=== PATIENT | female | born 1960 | race Caucasian/White ===

== ENCOUNTER 2016-09-03 17:52 | Emergency (ER) | payer OTHER ==
[~2016-09-03] VITALS: Ht 157.5 cm; Wt 63.5 kg
[~2016-09-03 17:52] MED LIST: ASPIRIN; ATENOLOL; FOSINOPRIL; HYDR-3498 PO; IBUP-1542 PO; METFORMIN; POLY17PO6 PO; PROTONIX
[2016-09-03 18:22] VITALS: Ht 157.5 cm; Wt 63.5 kg
--- NOTE | 2016-09-03 18:51 | ERD ---
ER Documentation Chief Complaint Date/Time DATE: 09/03/16 TIME: 18:48 Chief Complaint sore throat x 1 day HPI 56-year-old female presents here in emergency department for some inflammation in the back of her tongue. Patient noted this blistery looking inflammation in the back of her tongue. Patient did not eat something new or different. Patient does not have any sore throat or throat discomfort. Patient does not have any fever or chills. ROS All systems reviewed and are negative except as per history of present illness. Medications Home Meds Active Scripts Ibuprofen* (Motrin*) 600 Mg Tab, 600 MG PO Q6H Y for PAIN AND OR ELEVATED TEMP, #30 TAB Prov:AMADOU CORRAL PA-C 04/15/15 Polyethylene Glycol* (Miralax*) 17 Gm Powd.pack, 17 GM PO DAILY, #7 Prov:AMADOU CORRAL-C 04/15/15 Hydrocodone Bit-Acetaminophen* ([place]*) 5-325 Mg Tab, 1 TAB PO Q6 Y for PAIN, # 7 TAB Prov:AMADOU CORRALC 04/15/15 Reported Medications [Fosinopril] No Conflict Check 01/02/15 [Atenolol] No Conflict Check 01/02/15 [Protonix] No Conflict Check 01/02/15 [Metformin] No Conflict Check 01/02/15 [Aspirin] No Conflict Check 01/02/15 Allergies Allergies: Coded Allergies: No Known Allergy (Unverified , 01/02/15) PMhx/Soc History of Surgery: Yes () Anesthesia Reaction: No Hx Neurological Disorder: No Hx Respiratory Disorders: No Hx Cardiac Disorders: Yes (HTN, HYPERLIPIDEMIA, ) Hx Psychiatric Problems: No Hx Miscellaneous Medical Probl: No Hx Alcohol Use: No Hx Substance Use: No Hx Tobacco Use: No FmHx Family History: No coronary disease, No diabetes, No other Physical Exam Vitals Vital Signs Date Time Temp Pulse Resp B/P Pulse Ox O2 Delivery O2 Flow Rate FiO2 09/03/16 18:22 97.6 57 18 149/74 98 Physical Exam GENERAL: The patient is well developed and appropriate for usual state of health, in no apparent distress. HEENT: Atraumatic. Ears: Normal tympanic membrane, no erythema or bulging. No ear canal swelling. No ear discharge. Nose: normal nasal turbinates, no erythema or swelling. Normal nasal discharge. Throat: oropharynx clear. No tonsillar swelling or tonsillar exudates. No lymphadenopathy. Noted inflamed gland of the back of the tongue. CHEST: Clear to auscultation bilaterally. There are no rales, wheezes or rhonchi. HEART: Regular rate and rhythm. No murmurs, clicks, rubs or gallops. No S3 or S4. ABDOMEN: Soft, nontender and nondistended. Good bowel sounds. No rebound or guarding. No gross peritonitis. No gross organomegaly or masses. No Cox sign or McBurney point tenderness. BACK: No midline or flank tenderness. EXTREMITIES: Equal pulses bilaterally. There is no peripheral clubbing, cyanosis or edema. No focal swelling or erythema. Full range of motion. Grossly neurovascularly intact. NEURO: Alert and oriented. Cranial nerves 2-12 intact. Motor strength in all 4 extremities with 5/5 strength. Sensation grossly intact. Normal speech and gait. SKIN: There is no apparent rash or petechia. The skin is warm and dry. HEMATOLOGIC AND LYMPHATIC: There is no evidence of excessive bruising or lymphedema. No gross cervical, axillary, or inguinal lymphadenopathy. Procedures/MDM Medical decision making: Patient's symptoms are nonspecific at this time, patient has pronounced glands in the back of the tongue. No symptoms of any strep throat, acute bacterial pharyngitis. No oral airway obstruction noted. Patient was advised to follow-up with primary care doctor in 2-3 days for reevaluation of symptoms, possible biopsy if enlargement on affected area continues to persist. Patient is advised to return to emergency department for any worsening symptoms. Departure Diagnosis: Primary Impression: Tongue irritation Condition: Stable Patient Instructions: Pain Management Additional Instructions: see primary care doctor, possible biopsy if necessary MELISSA CHERRY NP September 03, 2016 18:51
== END 2016-09-03 18:57 | disposition home or self-care (01) ==
LOC: E/R 17:52
DX: K14.8 Other diseases of tongue (principal); I10 Essential (primary) hypertension
CPT/HCPCS: 99282